=== PATIENT | female | born 1980 | race Caucasian/White ===

== ENCOUNTER 2020-11-17 09:16 | Inpatient (IN) ==
[2020-11-17] MEDS ORDERED: *HR* Nalbuphine 10 MG/ML AMPUL IV PRN (09:45)
[2020-11-17] MEDS ORDERED: Ondansetron 4 MG/2 ML VIAL IVP PRN (09:45)
[2020-11-17] MEDS ORDERED: Naloxone 0.4 MG/ML INJ IVP PRN (09:45)
[2020-11-17] MEDS ORDERED: Metoclopramide 10 MG/2 ML VIAL IVP PRN (09:45)
[2020-11-17] MEDS ORDERED: Famotidine 20 MG/2 ML VIAL IVP PRN (09:45)
[2020-11-17] MEDS ORDERED: Penicillin G Potassium 5,000,000 UNIT in 0.9 % Sodium Chloride Mini Bag 100 ML IVPB ONE (10:28)
[2020-11-17 11:00] LABS: Basophils # 0.1 K/mcL (0.0-0.2); Basophils % 0.5 %; Eosinophils # 0.1 K/mcL (0.0-0.6); Eosinophils % 1.1 %; Hematocrit 39.1 % (35.3-44.9); Hemoglobin 12.3 g/dL (11.5-15.4); Immature Granulocytes % 1.5 % (0-4); Lymphocytes # 1.6 K/mcL (0.6-4.6); Lymphocytes % 15.8 %; Mean Corpuscular HGB Conc 31.5 g/dL (31.6-35.5); Mean Corpuscular Volume 95.4 fL (83.0-100.0); Mean Platelet Volume 12.1 fL (9.4-12.4); Monocytes # 0.8 K/mcL (0.0-1.3); Monocytes % 7.5 %; Neutrophils # 7.5 K/mcL (1.6-8.9); Platelet Count 222 K/mcL (140-400); Red Cell Distribution Width 14.3 % (11.5-14.5); Segmented Neutrophils % 73.6 %; White Blood Count 10.2 K/mcL (4.3-11.1)
[2020-11-17] MEDS: Ringers Solution, Lactated 1,000 ML IVC SCH ×2 (11:17→15:03)
[2020-11-17] MEDS ORDERED: EPHEDrine 50 MG/ML VIAL IVP PRN (11:26)
[2020-11-17 11:34] LABS: Influenza A PCR Negative (Negative); Influenza B PCR Negative (Negative); Resp. Syncytial Virus PCR Negative (Negative)
[2020-11-17] MEDS: Oxytocin 20 units/ LR 1000 mL 20 UNIT/1,000 ML BAG IVC ONE (11:54)
[2020-11-17 11:55] LABS: SARS-CoV-2 by PCR (In House) Negative (Negative)
[2020-11-17 12:54] LABS: Amphetamine Screen,Urine Negative ng/mL (Cutoff=1000); Barbiturate Screen,Urine Negative ng/mL (Cutoff=200); Benzodiazepines Screen,Urine Negative ng/mL (Cutoff=200); Cannabinoid Screen,Urine Negative ng/mL (Cutoff = 50); Cocaine Screen,Urine Negative ng/mL (Cutoff= 300); Creatinine,Urine 110 mg/dL; Opiate Screen,Urine Negative ng/mL (Cutoff=300); Phencyclidine Screen,Urine Negative ng/mL (Cutoff=25); Protein/Creatinine Ratio,Urine 0.35 mg/mg (0.00-0.20)
[2020-11-17 12:55] LABS: Alanine Aminotransferase 8 Units/L (7-52); Aspartate Amino Transferase 24 Units/L (13-39); BUN/Creatinine Ratio 17 (6-26); Blood Urea Nitrogen 12 mg/dL (6-20); Lactate Dehydrogenase 244 Units/L (140-271); Uric Acid 5.7 mg/dL (2.3-7.6); eGFR For African Americans > 60 (> 60); eGFR For Non-African Americans > 60 (> 60)
[2020-11-17] MEDS: Epidural Premix (fent/bupiv) 110 ML EP SCH ×2 (13:30→18:44)
[2020-11-17] MEDS ORDERED: *HR* Ropivacaine/PF 0.5% 20 ML VIAL ONE (20:34)
[2020-11-17] MEDS ORDERED: *HR* Labetalol 20 MG/4 ML SYRINGE IVP ONE ×2 (21:44→21:45)
[2020-11-17] MEDS: Penicillin G Potassium 2,500,000 UNIT/105 ML MLS IVPB SCH (21:51)
[2020-11-18] MEDS ORDERED: *HR* FentaNYL (PF) 100 MCG/2 ML VIAL ONE ×4 (00:09→12:40)
[2020-11-18] MEDS: Penicillin G Potassium 2,500,000 UNIT/105 ML MLS IVPB SCH (03:25)
[2020-11-18] MEDS ORDERED: *HR* FentaNYL (PF) 250 MCG/5 ML VIAL ONE (06:47)
[2020-11-18] MEDS ORDERED: Ropivacaine/PF 0.2% 20 ML VIAL ONE (06:47)
[2020-11-18] MEDS ORDERED: Oxytocin 20 units/ LR 1000 mL 20 UNIT/1,000 ML BAG IVC ONE ×2 (08:04→14:13)
[2020-11-18] MEDS: Ringers Solution, Lactated 1,000 ML IVC SCH (09:50)
[2020-11-18] MEDS: Epidural Premix (fent/bupiv) 110 ML EP SCH (09:51)
[2020-11-18] MEDS: Oxytocin 20 units/ LR 1000 mL 20 UNIT/1,000 ML BAG IVC ONE (13:05)
[2020-11-18] MEDS ORDERED: Acetaminophen 325 MG TABLET PO PRN (14:13)
[2020-11-18] MEDS ORDERED: Benzocaine/Menthol 56 GM AEROSOL SPRAY TP PRN (14:13)
[2020-11-18] MEDS ORDERED: Ibuprofen 600 MG TABLET PO PRN (14:13)
[2020-11-18] MEDS ORDERED: Oxytocin 20 units/ LR 1000 mL 20 UNIT/1,000 ML BAG IVC SCH (14:13)
[2020-11-18] MEDS ORDERED: *HR* HYDROcodone/Acet 5/325 mg TABLET PO PRN (14:13)
[2020-11-18] MEDS: Venlafaxine XR (24 HR) 150 MG CAP.ER.24H PO SCH (16:52)
[2020-11-19 02:44] VITALS: O2SAT 99
[2020-11-19 05:04] VITALS: PULSE 98
[2020-11-19 08:09] VITALS: BP 115/73; TEMP 98
[2020-11-19] MEDS: Venlafaxine XR (24 HR) 150 MG CAP.ER.24H PO SCH (08:19)
[2020-11-19] MEDS ORDERED: Prenatal Vit/FA 1 EACH TABLET PO SCH (09:00)
== END 2020-11-19 14:05 | disposition home or self-care (01) | DRG 806 ==
LOC: 1NENULAB 09:16 → 1NENUOBS 11-18 14:06
PROVIDERS: ADMIT Obstetrics & Gynecology; ATTEND Obstetrics & Gynecology